=== PATIENT | male | born 1985 | race Caucasian/White ===

== ENCOUNTER 2018-01-31 04:38 | Emergency (ER) | payer OTHER ==
[~2018-01-31] VITALS: Ht 170.2 cm; Wt 61.2 kg
[~2018-01-31 04:38] MED LIST: Bactrim Ds Tab1 EACH PO; CEPH500 PO
[2018-01-31] MEDS ORDERED: Hydrocodone-Ap1 EA23 PO (04:51)
[2018-01-31] MEDS ORDERED: CEPH500 PO (06:12)
== END 2018-01-31 06:17 | disposition home or self-care (01) ==
LOC: ER 04:38
DX: S67.196A Crushing injury of right little finger, initial encounter (principal); S62.636A Displaced fracture of distal phalanx of right little finger, initial encounter for closed fracture; F17.200 Nicotine dependence, unspecified, uncomplicated; W31.89XA Contact with other specified machinery, initial encounter
CPT/HCPCS: 11730; 73140; 99282-25

== ENCOUNTER 2018-02-03 19:23 | Emergency (ER) | payer OTHER ==
[~2018-02-03] VITALS: Ht 180.3 cm; Wt 88.5 kg
[~2018-02-03 19:23] MED LIST changes: +Hydrocodone-Ap1 EA23 PO
== END 2018-02-03 19:52 | disposition home or self-care (01) ==
LOC: ER 19:23
DX: S62.631D Displaced fracture of distal phalanx of left index finger, subsequent encounter for fracture with routine healing (principal)
CPT/HCPCS: 99282

== ENCOUNTER 2018-11-08 22:00 | Emergency (ER) | payer OTHER, BC ==
[~2018-11-08] VITALS: Ht 177.8 cm; Wt 81.7 kg
[2018-11-08] MEDS ORDERED: CYCL10 PO (23:05)
[2018-11-08] MEDS ORDERED: Naprosyn500 MG PO (23:05)
== END 2018-11-08 23:38 | disposition home or self-care (01) ==
LOC: ER 22:00
DX: S16.1XXA Strain of muscle, fascia and tendon at neck level, initial encounter (principal); S46.911A Strain of unspecified muscle, fascia and tendon at shoulder and upper arm level, right arm, initial encounter; V49.9XXA Car occupant (driver) (passenger) injured in unspecified traffic accident, initial encounter; F17.220 Nicotine dependence, chewing tobacco, uncomplicated
CPT/HCPCS: 99283

== ENCOUNTER 2020-10-20 09:51 | Emergency (ER) | payer BC, OTHER ==
[~2020-10-20] VITALS: Ht 177.8 cm; Wt 86.2 kg
[~2020-10-20 09:51] MED LIST changes: +CYCL10 PO; +Naprosyn500 MG PO
[2020-10-20] MEDS ORDERED: MULVITA PO (10:04)
[2020-10-20 10:47] LABS: BASOPHILS ABSOLUTE AUTO 0.02 K/mm3 (0.00-0.23); BASOPHILS PERCENT AUTO 0 % (0-2); EOSINOPHILS ABSOLUTE AUTO 0.13 K/mm3 (0.00-0.68); EOSINOPHILS PERCENT AUTO 2 % (0-6); Hematocrit 47.8 % (37.0-53.0); Hemoglobin 16.6 g/dL (13.5-17.5); IMMATURE GRAN ABSOLUTE AUTO 0.01 K/mm3 (0.00-0.10); IMMATURE GRAN PERCENT AUTO 0 % (0-1); LYMPHOCYTES ABSOLUTE AUTO 2.01 K/mm3 (0.84-5.20); LYMPHOCYTES PERCENT AUTO 35 % (21-46); MONOCYTES ABSOLUTE AUTO 0.36 K/mm3 (0.16-1.47); MONOCYTES PERCENT AUTO 6 % (4-13); Mean Corpuscular HGB 29.2 pg (26.0-34.0); Mean Corpuscular HGB Conc 34.7 g/dL (31.5-36.5); Mean Corpuscular Volume 84 fL (80-100); Mean Platelet Volume 11.4 fL (9.1-12.4); NEUTROPHILS ABSOLUTE AUTO 3.29 K/mm3 (1.96-9.15); NEUTROPHILS PERCENT AUTO 57 % (41-73); Platelet Count 184 K/mm3 (150-400); RDW Coefficient Variation 11.7 % (11.7-14.2); RDW Standard Deviation 35.4 fL (35.1-46.3); Red Blood Cell Count 5.69 M/mm3 (4.30-5.90); White Blood Cell Count 5.82 K/mm3 (4.00-11.30)
[2020-10-20 11:05] LABS: Anion Gap 1 mmol/L (6-16); Blood Urea Nitrogen 23 mg/dL (8-24); Bun/Creatinine Ratio 25.2 (12.0-20.0); CO2, Blood 29 mmol/L (21-32); Calcium, Blood 9.3 mg/dL (8.5-10.1); Chloride, Blood 109 mmol/L (98-108); Creatinine, Blood 0.91 mg/dL (0.60-1.20); Glomerular Filtration Rate >60 (60-); Glucose, Blood 104 mg/dL (70-99); International Normalized Ratio 1.01; Potassium, Blood 4.4 mmol/L (3.5-5.5); Prothrombin Time Results 10.9 Sec (9.7-11.5); Sodium, Blood 139 mmol/L (136-145)
[2020-10-20] MEDS ORDERED: METPRE4DP PO (11:55)
[2020-10-20] MEDS ORDERED: IBUP800 PO (11:55)
== END 2020-10-20 12:00 | disposition home or self-care (01) ==
LOC: ER 09:51
PROVIDERS: Emergency Medicine
DX: M54.10 Radiculopathy, site unspecified (principal); F17.220 Nicotine dependence, chewing tobacco, uncomplicated
CPT/HCPCS: 36415; 73590; 80048; 85025; 85610; 93971; 99284-25

== ENCOUNTER 2021-01-30 20:36 | Emergency (ER) | payer BC, OTHER ==
[~2021-01-30] VITALS: Ht 177.8 cm; Wt 77.1 kg
[~2021-01-30 20:36] MED LIST changes: +IBUP800 PO; +METPRE4DP PO; +MULVITA PO
== END 2021-01-31 02:16 | disposition home or self-care (01) ==
LOC: ER 20:36
DX: U07.1 COVID-19 (principal); Z87.891 Personal history of nicotine dependence
CPT/HCPCS: 71045; 99283-25

== ENCOUNTER → 2022-07-29 | Outpatient (CLI) | payer BC, OTHER ==
[2022-07-30 10:06] LABS: Stool Occult Bld Immuno 1 Negative (NEGATIVE)
== END | disposition home or self-care (01) ==
LOC: LAB SHORT 08:45
PROVIDERS: Nurse Practitioner Family
DX: Z12.11 Encounter for screening for malignant neoplasm of colon (principal)
CPT/HCPCS: G0328